=== PATIENT | female | born 1990 | race Caucasian/White ===

== ENCOUNTER 2021-07-11 00:11 | Inpatient (IN) | payer BC, MEDICAID ==
[~2021-07-11] VITALS: Ht 170.2 cm; Wt 57.8 kg
[2021-07-12 02:41] LABS: GLUCOMETER DEV NAME(LOC) BV3N.; GLUCOSE,POINT OF CARE 117 MG/DL (70-110)
[2021-07-12] MEDS: LORazepam 2 MG TABLET PO PRN ×2 (02:55→13:07)
[2021-07-12] MEDS: ZOLPIDEM TARTRATE 10 MG TABLET PO PRN (02:56)
[2021-07-12 07:49] LABS: BASOPHILS % (AUTO) 0.7 % (0.0-2.0); EOSINOPHILS % (AUTO) 2.1 % (1.0-6.0); HEMATOCRIT 31.9 % (36-46); HEMOGLOBIN 10.9 g/dL (12.0-16.0); LYMPHOCYTES # (AUTO) 1.4 K/uL (1.0-4.8); LYMPHOCYTES % (AUTO) 31.4 % (22.0-44.0); MEAN CORPUSCULAR HEMOGLOBIN 30.8 pg (26.0-34.0); MEAN CORPUSCULAR HGB CONC 34.1 G/dL (31.0-37.0); MEAN CORPUSCULAR VOLUME 90 fL (80-100); MONOCYTES # (AUTO) 0.5 K/uL (0.1-1.0); NEUTROPHILS # (AUTO) 2.4 K/uL (1.8-7.7); NEUTROPHILS % (AUTO) 54.8 % (40.0-70.0); PLATELET COUNT (AUTO) 253 K/uL (150-450); RED BLOOD CELL COUNT(AUTO) 3.53 MIL/uL (4.00-5.20); RED CELL DISTRIBUTION WIDTH 14.8 % (11.5-14.5)
[2021-07-12 07:58] LABS: HEMOGLOBIN A1C 5.2 % (3.8-5.6)
[2021-07-12 08:15] VITALS: BP 95/62
[2021-07-12 08:16] LABS: ALANINE AMINOTRANSFERASE 25 U/L (12-78); ALBUMIN 2.9 g/dL (3.4-5.0); ALKALINE PHOSPHATASE 58 U/L (46-116); ANION GAP 6 mmol/L (8-16); ASPARTATE AMINOTRANSFERASE 23 U/L (15-37); BILIRUBIN,TOTAL 0.3 mg/dL (0.1-1.0); CARBON DIOXIDE 28 mmol/L (22-29); CHLORIDE 108 mmol/L (98-107); CHOL/HDL RATIO 1.7 (3.9-5.7); CHOLESTEROL 159 mg/dL (131-200); FREE T4 (FREE THYROXINE) 0.92 ng/dL (0.76-1.46); GLOMERULAR FILTR. RATE CALC > 60 mL/min (>60); GLUCOSE,RANDOM 90 mg/dL (70-110); HDL CHOLESTEROL 94 mg/dL (40-60); LDL CHOL (CALC.) 55 mg/dL (0-130); SODIUM SERUM 142 mmol/L (136-145); THYROID STIMULATING HORMONE 2.05 uIU/mL (0.36-3.74); TOTAL PROTEIN, SERUM 6.3 g/dL (6.4-8.2); TRIGLYCERIDES 52 mg/dL (15-150); UREA NITROGEN, BLOOD 13 mg/dL (7-18)
[2021-07-12] MEDS ORDERED: SUMAtriptan SUCCINATE 25 MG TABLET PO PRN (09:00)
[2021-07-12 09:13] VITALS: BP 106/70
[2021-07-12] MEDS: SUMAtriptan SUCCINATE 25 MG TABLET PO PRN (09:13)
[2021-07-12] MEDS: NICOTINE 21 MG/24 HOUR PATCH TD SCH (09:13)
[2021-07-12] MEDS: HALOPERIDOL 5 MG TABLET PO PRN (12:21)
[2021-07-12] MEDS: MAGNESIUM HYDROXIDE SUSPENSION 30 ML UDCUP PO PRN (14:06)
[2021-07-12 17:29] VITALS: BP 134/92
[2021-07-12 20:21] LABS: GLUCOMETER DEV NAME(LOC) BV3S.; GLUCOSE,POINT OF CARE 94 MG/DL (70-110)
[2021-07-12] MEDS ORDERED: OLANZapine 10 MG TABLET PO SCH (21:00)
[2021-07-13 00:56] VITALS: BP 130/88
[2021-07-13] MEDS: NICOTINE POLACRILEX 2 MG LOZENGE PO PRN ×2 (06:28→20:06)
[2021-07-13 06:45] VITALS: BP 128/78
[2021-07-13] MEDS: SUMAtriptan SUCCINATE 25 MG TABLET PO PRN (06:51)
[2021-07-13 07:33] LABS: APPEARANCE,URINE CLEAR (CLEAR); BILIRUBIN,URINE NEGATIVE (NEGATIVE); GLUCOSE, URINE (UA) NEGATIVE (NEGATIVE); KETONES,URINE NEGATIVE (NEGATIVE); LEUKOCYTE ESTERASE ,URINE NEGATIVE (NEGATIVE); NITRATE,URINE NEGATIVE (NEGATIVE); OCCULT BLOOD,URINE NEGATIVE (NEGATIVE); PROTEIN,URINE NEGATIVE (NEGATIVE); SPECIFIC GRAVITIY, URINE 1.005 (1.003-1.030); UROBILINOGEN,URINE <=1.0 mg/dL (<=1.0)
[2021-07-13 07:39] LABS: AMPHET/METH SCREEN,URINE NEGATIVE (NEGATIVE); BARBITURATE SCREEN, URINE NEGATIVE (NEGATIVE); BENZODIAZEPINES SCREEN,URINE NEGATIVE (NEGATIVE); CANNABINOID SCREEN,URINE NEGATIVE (NEGATIVE); COCAINE SCREEN,URINE NEGATIVE (NEGATIVE); METHADONE SCREEN, URINE NEGATIVE (NEGATIVE); OPIATE SCREEN,URINE NEGATIVE (NEGATIVE)
[2021-07-13] MEDS: LORazepam 2 MG TABLET PO PRN ×2 (07:50→14:10)
[2021-07-13] MEDS: HALOPERIDOL 5 MG TABLET PO PRN (07:50)
[2021-07-13 07:52] LABS: PHENCYCLIDINE SCREEN,URINE NEGATIVE (NEGATIVE)
[2021-07-13 08:00] VITALS: BP 114/75
[2021-07-13] MEDS: NICOTINE 21 MG/24 HOUR PATCH TD SCH (09:16)
[2021-07-13 11:56] LABS: GLUCOMETER DEV NAME(LOC) BV3S.; GLUCOSE,POINT OF CARE 76 MG/DL (70-110)
[2021-07-13 17:09] VITALS: BP 113/75
[2021-07-13] MEDS: OLANZapine 7.5 MG TABLET PO SCH (20:13)
[2021-07-13] MEDS: DIVALPROEX SODIUM 250 MG DR TABLET PO SCH (20:13)
[2021-07-13 20:36] LABS: GLUCOMETER DEV NAME(LOC) BV3S.; GLUCOSE,POINT OF CARE 94 MG/DL (70-110)
[2021-07-13] MEDS: ZOLPIDEM TARTRATE 10 MG TABLET PO PRN (20:40)
[2021-07-14 07:22] VITALS: BP 118/75
[2021-07-14] MEDS: NICOTINE POLACRILEX 2 MG LOZENGE PO PRN ×2 (07:33→17:25)
[2021-07-14] MEDS: NICOTINE 21 MG/24 HOUR PATCH TD SCH (08:30)
[2021-07-14] MEDS: LORazepam 2 MG TABLET PO PRN ×2 (09:05→17:25)
[2021-07-14] MEDS: HALOPERIDOL 5 MG TABLET PO PRN (09:05)
[2021-07-14 09:56] LABS: GLUCOMETER DEV NAME(LOC) BV3S.; GLUCOSE,POINT OF CARE 78 MG/DL (70-110)
[2021-07-14 09:58] VITALS: BP 110/78
[2021-07-14 16:29] VITALS: BP 117/76
[2021-07-14] MEDS: DIVALPROEX SODIUM 250 MG DR TABLET PO SCH (20:09)
[2021-07-14] MEDS: ZOLPIDEM TARTRATE 10 MG TABLET PO PRN (20:10)
[2021-07-14] MEDS: OLANZapine 7.5 MG TABLET PO SCH (20:10)
[2021-07-14 20:41] LABS: GLUCOMETER DEV NAME(LOC) BV3S.; GLUCOSE,POINT OF CARE 95 MG/DL (70-110)
[2021-07-15 06:02] VITALS: BP 111/65
[2021-07-15 08:18] VITALS: BP 116/71
[2021-07-15] MEDS: NICOTINE 21 MG/24 HOUR PATCH TD SCH (08:18)
[2021-07-15] MEDS: LORazepam 2 MG TABLET PO PRN (09:16)
[2021-07-15 09:32] LABS: GLUCOMETER DEV NAME(LOC) BV3S.; GLUCOSE,POINT OF CARE 93 MG/DL (70-110)
[2021-07-15] MEDS: SUMAtriptan SUCCINATE 25 MG TABLET PO PRN (10:39)
[2021-07-15] MEDS: NICOTINE POLACRILEX 2 MG LOZENGE PO PRN (13:19)
[2021-07-15] MEDS: HALOPERIDOL 5 MG TABLET PO PRN ×2 (14:02→20:16)
[2021-07-15] MEDS: MAGNESIUM HYDROXIDE SUSPENSION 30 ML UDCUP PO PRN (14:09)
[2021-07-15 16:32] VITALS: BP 113/68
[2021-07-15] MEDS: DIVALPROEX SODIUM 250 MG DR TABLET PO SCH (20:15)
[2021-07-15] MEDS: MetFORMIN HCL 500 MG TABLET PO SCH (20:15)
[2021-07-15] MEDS: OLANZapine 7.5 MG TABLET PO SCH (20:16)
[2021-07-15] MEDS: ZOLPIDEM TARTRATE 10 MG TABLET PO PRN (20:16)
[2021-07-15 20:46] LABS: GLUCOMETER DEV NAME(LOC) BV3S.; GLUCOSE,POINT OF CARE 105 MG/DL (70-110)
[2021-07-16 01:18] VITALS: BP 110/78
[2021-07-16] MEDS: NICOTINE POLACRILEX 2 MG LOZENGE PO PRN ×2 (07:44→16:32)
[2021-07-16 08:18] VITALS: BP 117/70
[2021-07-16] MEDS: LORazepam 2 MG TABLET PO PRN (08:20)
[2021-07-16] MEDS: SUMAtriptan SUCCINATE 25 MG TABLET PO PRN (08:41)
[2021-07-16 10:31] LABS: GLUCOMETER DEV NAME(LOC) BV3S.; GLUCOSE,POINT OF CARE 124 MG/DL (70-110)
[2021-07-16 16:18] VITALS: BP 100/60
[2021-07-16] MEDS: MetFORMIN HCL 500 MG TABLET PO SCH (20:12)
[2021-07-16] MEDS: DIVALPROEX SODIUM 250 MG DR TABLET PO SCH (20:12)
[2021-07-16] MEDS: OLANZapine 7.5 MG TABLET PO SCH (20:13)
[2021-07-16 22:36] LABS: GLUCOMETER DEV NAME(LOC) BV3S.; GLUCOSE,POINT OF CARE 114 MG/DL (70-110)
[2021-07-17 01:02] VITALS: BP 106/65
[2021-07-17] MEDS: NICOTINE POLACRILEX 2 MG LOZENGE PO PRN (04:07)
[2021-07-17] MEDS: SUMAtriptan SUCCINATE 25 MG TABLET PO PRN (05:15)
[2021-07-17 05:21] VITALS: BP 114/78
[2021-07-17 08:34] VITALS: BP 121/78
[2021-07-17] MEDS: LORazepam 2 MG TABLET PO PRN (08:35)
[2021-07-17] MEDS ORDERED: ONDANSETRON HCL 4 MG/2 ML VIAL IM ONE (08:45)
[2021-07-17 10:58] LABS: GLUCOMETER DEV NAME(LOC) BV3S.; GLUCOSE,POINT OF CARE 118 MG/DL (70-110)
[2021-07-17] MEDS ORDERED: FLUTICASONE PROPIONATE 50 MCG/SPRAY 16 GM NASAL SPRAY NASAL PRN (11:15)
[2021-07-17] MEDS ORDERED: NICOTINE POLACRILEX 2 MG LOZENGE PO PRN (13:15)
[2021-07-17] MEDS ORDERED: DIVA-111 PO ×2 (15:03→15:26)
[2021-07-17] MEDS ORDERED: OLAN7.5T22 PO ×2 (15:03→15:26)
[2021-07-17] MEDS ORDERED: METF-1211 PO (15:26)
[2021-07-17 16:33] VITALS: BP 103/67
== END 2021-07-17 20:19 | disposition home or self-care (01) | DRG 885 ==
LOC: B3A 07-12 00:16
PROVIDERS: ADMIT Psychiatry & Neurology Psychiatry; ATTEND Psychiatry & Neurology Psychiatry
DX: F31.64 Bipolar disorder, current episode mixed, severe, with psychotic features (principal); D64.9 Anemia, unspecified; D72.819 Decreased white blood cell count, unspecified; F19.10 Other psychoactive substance abuse, uncomplicated; Z20.822 Contact with and (suspected) exposure to COVID-19; F17.200 Nicotine dependence, unspecified, uncomplicated; Z71.6 Tobacco abuse counseling; Z79.899 Other long term (current) drug therapy
CPT/HCPCS: 80053; 80061; 80307; 81003; 82962; 83036; 84436; 84439; 84443; 84703; 85025; 87081; G0480; J2405; Q9967